=== PATIENT | male | born 1955 | race Caucasian/White ===

== ENCOUNTER → 2017-07-10 | Outpatient (CLI) | payer OTHER ==
[~2017-07-10] MED LIST: ASPIRIN81 MG PO; FISH OIL300 MG PO; HUMALOG100 UNIT/1; MULTIVITAMINS1 EAC7 PO; PROGRAF1 MG PO; SERTRALINE HCL100 MG PO; SOMINEX PO; TRESIBA SQ; VITAMIN D35000 UNIT PO
--- NOTE | 2017-07-10 14:29 | Diagnostic Imaging Report ---
EXAM: Scrotal Ultrasound with Duplex INDICATION: \S\TESTICULAR PAIN / SCROTAL MASS COMPARISON: None TECHNIQUE: Transverse and longitudinal images were obtained of the scrotum with grayscale imaging, color Doppler and spectral waveform analysis. FINDINGS: Right testis: Size: 2.8 x 1.8 x 2.3 cm, normal in size. Echogenicity: Normal Mass/Cysts: None Left testis: Size: 3.5 x 1.8 x 2.4 cm, normal in size. Echogenicity: Normal Mass/Cysts: None Epididymis: Appearance: Normal in size without increased vascularity. Mass/Cysts: None Extratesticular: Masses: 1.5 x 0.6 x 1.2 cm heterogeneous mixed echoic subcutaneous lesion in the right scrotal palpable area with internal flow on color Doppler and no change with Valsalva. Hydrocele: None Varicocele: None Doppler: Normal arterial flow to both testes and symmetrical flow on color Doppler evaluation is seen. No evidence of testicular torsion. IMPRESSION: 1. No evidence of testicular torsion. 2. Small bilateral testicles, right smaller than left. 3. No evidence of testicular mass. 4. Subcutaneous indeterminate right scrotal lesion, in the palpable area, measuring 1.5 cm. Signed by: Dr. Juanjose Martinez MD on 07/10/2017 2:26 PM
== END ==
LOC: US 13:27
PROVIDERS: ATTEND Family Medicine
DX: N50.9 Disorder of male genital organs, unspecified (principal)
CPT/HCPCS: 76870; 93976

== ENCOUNTER → 2020-11-05 | Day surgery (SDC) | payer BC ==
[2020-11-03 14:11] LABS: BASOPHILS # (AUTO) 0.1 (0.0-0.1); BASOPHILS % 0.5 % (0.0-1.0); EOSINOPHILS # (AUTO) 0.3 (0.0-0.4); EOSINOPHILS % 2.7 % (0.0-6.0); LYMPHOCYTES # (AUTO) 1.9 (1.0-3.2); MEAN CORPUSCULAR HEMOGLOBIN 29.1 pg (28-32); MEAN CORPUSCULAR HGB CONC 33.3 g/dL (31-35); MEAN CORPUSCULAR VOLUME 87.4 fL (81-99); MONOCYTES # (AUTO) 0.9 (0.2-0.8); MONOCYTES % 8.7 % (4.4-11.3); NEUTROPHILS # (AUTO) 6.9 (2.1-6.9); NEUTROPHILS % 68.6 % (38.7-80.0); PLATELET COUNT 297 x10e3/uL (140-360); RED BLOOD COUNT 4.46 x10e6/uL (4.3-5.7); RED CELL DISTRIBUTION WIDTH 14.1 % (11.7-14.4)
[~2020-11-05] MED LIST changes: +CLOPIDOGREL75 MG PO; +CRESTOR10 MG PO; +FLOMAX0.4 MG PO; +FUROSEMIDE40 MG PO; +LEXAPRO5 MG PO; +LISINOPRIL2.5 MG PO; +METOPROLOL TART50 MG PO; +MIDAZOLAM HCL 2 MG/2 ML VIAL ONE; +SEROQUEL100 MG PO; +TACROLIMUS1 MG PO; +TRAZODONE HCL50 MG PO
[2020-11-05 12:10] VITALS: BP 115/73
== END | disposition home or self-care (01) ==
LOC: OR 08:26
PROVIDERS: ATTEND Internal Medicine Gastroenterology
DX: Z09 Encounter for follow-up examination after completed treatment for conditions other than malignant neoplasm (principal); Z86.010 Personal history of colon polyps; K57.30 Diverticulosis of large intestine without perforation or abscess without bleeding; K64.8 Other hemorrhoids; Z71.3 Dietary counseling and surveillance; E11.9 Type 2 diabetes mellitus without complications; E66.3 Overweight; B19.20 Unspecified viral hepatitis C without hepatic coma; I25.10 Atherosclerotic heart disease of native coronary artery without angina pectoris; I10 Essential (primary) hypertension; I69.898 Other sequelae of other cerebrovascular disease; Z01.810 Encounter for preprocedural cardiovascular examination; Z01.812 Encounter for preprocedural laboratory examination; Z20.822 Contact with and (suspected) exposure to COVID-19; Z79.82 Long term (current) use of aspirin; Z79.4 Long term (current) use of insulin; Z79.02 Long term (current) use of antithrombotics/antiplatelets; Z68.28 Body mass index [BMI] 28.0-28.9, adult; Z94.4 Liver transplant status; Z87.891 Personal history of nicotine dependence
CPT/HCPCS: 36415 ×2; 45378; 82948; 85025; 93005; J2250; U0002

== ENCOUNTER → 2021-06-17 | Outpatient (CLI) | payer BC ==
[~2021-06-17] MED LIST changes: -MIDAZOLAM HCL 2 MG/2 ML VIAL ONE
== END ==
LOC: MAMMO 09:39
PROVIDERS: ATTEND Family Medicine
DX: N63.10 Unspecified lump in the right breast, unspecified quadrant (principal)
CPT/HCPCS: 77066

== ENCOUNTER → 2022-03-18 | Outpatient (CLI) | payer BC | LOC: RAD 10:28 | PROVIDERS: ATTEND Family Medicine | DX: J18.9 Pneumonia, unspecified organism (principal) | CPT/HCPCS: 71046 ==